=== PATIENT | male | born 1980 | race Caucasian/White ===

== ENCOUNTER 2020-11-06 11:13 | Emergency (ER) | payer OTHER ==
[2020-11-06 11:34] VITALS: BP 122/88
[2020-11-06] MEDS ORDERED: PERC5TAB12 PO (11:47)
[2020-11-06] MEDS ORDERED: LIDOCAINE 5% (LIDODERM) PATCH TD ONE (12:35)
[2020-11-06] MEDS ORDERED: KETOROLAC 30 MG/ML 1ML VIAL IM ONE (12:35)
[2020-11-06] MEDS ORDERED: methylPREDNISolone 125MG 2ML VIAL IM ONE (12:35)
--- NOTE | 2020-11-06 13:33 | REP ---
INDICATION: severe low back pain. COMPARISON: None. TECHNIQUE: Helical scanning is acquired and 4 mm axial images re-formatted. Coronal and sagittal MPR images are provided. FINDINGS: Lumbar vertebral body heights are preserved. Alignment is normal. There is no evidence of spondylolysis or spondylolisthesis. No extra-spinal abnormality is observed. Axial and sagittal images at L1-2 show no significant abnormality. At L2-L3, posterior disc margin is intact. No spinal stenosis or foraminal narrowing is seen. The L3-4 disc level shows borderline canal size due to developmentally short pedicles and minimal diffuse disc bulging. No neural foraminal narrowing is seen. At L4-L5, there is degenerative disc narrowing. There is a broad-based left central focal disc protrusion compressing the thecal sac at L4-5 producing mild central canal stenosis. No bony neural foraminal narrowing is seen. At L5-S1, there is mild disc space narrowing and mild diffuse disc bulging is seen. Exam is otherwise unremarkable. IMPRESSION: There is a broad-based left paracentral disc protrusion at L4-5 producing thecal sac compression and mild central canal stenosis. <Electronically signed by Burton Nolasco > 11/06/20 [id number]
[2020-11-06] MEDS ORDERED: methocarbamoL 750 MG TAB PO ONE (13:40)
[2020-11-06] MEDS ORDERED: METH-1165 PO (14:37)
[2020-11-06] MEDS ORDERED: LIDO5DIS41 TD (14:37)
[2020-11-06] MEDS ORDERED: **NOTE PATIENT COMMENT** MISC XX SCH (21:00)
--- NOTE | 2020-11-10 10:54 | ED PDOC ---
Post-Departure Follow-Up ct ls spine faxed to jordi woodall for fu Sea Riddle MD November 10, 2020 10:54
== END 2020-11-06 22:07 | disposition home or self-care (01) ==
LOC: M ED 11:13 → EDBD 11:13 → M ED 22:07
DX: M51.27 Other intervertebral disc displacement, lumbosacral region (principal); M48.07 Spinal stenosis, lumbosacral region; Z88.0 Allergy status to penicillin
CPT/HCPCS: 72131; 96372; 99283; J1885; J2930